=== PATIENT | male | born 2000 | race African-American/Black ===

== ENCOUNTER 2025-01-15 13:36 | Emergency (ER) | payer SELFPAY ==
[2025-01-15 13:39] VITALS: BP 105/61
[2025-01-15 14:02] VITALS: BP 105/61
[2025-01-15 14:09] VITALS: BMI 24.0
--- NOTE | 2025-01-15 15:00 | ED.GENMED ---
History of Present Illness
General
Chief Complaint: Headache
Time Seen by Provider: 01/15/25 14:35
History of Present Illness
History of Present Illness:
Patient is a 24-year-old male with past medical history of Down syndrome here today with family for evaluation of a headache that began this morning. Sister checked his blood pressure and it was noted to be high approximately 160/120. They
provided Tylenol without improvement. Patient has also had nausea. No vomiting. No cough or other URI. No fevers. No history of headaches.
Review of Systems
Review of Systems
All Other Systems: ROS reviewed and negative except as documented in HPI and ROS
Phy Exam
Physical Exam
Physical Exam:
GENERAL: Alert , in no apparent distress
EYE: pupils equal and reactive to light, extraocular movements intact
NECK: Supple
ENT: o/p clr, mmm.
CARDIAC: Regular rate and rhythm .
LUNGS: Clear breath sounds bilaterally, no acute respiratory distress, no wheezes/rales/rhonchi
NEUROLOGICAL: Alert and oriented, no focal neuro deficits, cranial nerves II through XII intact, moving all extremities, normal sensation and motor
SKIN: Warm and dry, skin intact.
MUSCULOSKELETAL: No edema, well perfused.
PSYCH: Normal and appropriate interaction.
Course
Orders/Labs/Results
Orders:
Orders
01/15/25 14:59
CT Head W/o Iv Contrast Urgent
Comment:
Reason For Exam: headache, nausea
Vital Signs
Initial and Last Documented VS:
Initial Vital Signs
Temp Pulse Resp BP Pulse Ox
99.5 F 67 16 105/61 97
01/15/25 13:39 01/15/25 13:39 01/15/25 13:39 01/15/25 13:39 01/15/25 13:39
Last Documented Vital Signs
Temp Pulse Resp BP Pulse Ox
99.5 F 67 16 105/61 97
01/15/25 14:02 01/15/25 14:02 01/15/25 14:02 01/15/25 14:02 01/15/25 15:02
MDM/Problems Addressed
Differential Diagnosis Includes:
Patient is a 24-year-old male with past medical history of Down syndrome here today with family for evaluation of a headache. Patient well-appearing and is neurologically intact. His blood pressure is actually grossly normal. Otherwise no acute
abnormalities noted. Sister would feel more comfortable with CT imaging given the new onset headache which is unusual for the patient. He is also not able to verbally express his symptoms given history of Down syndrome. Shared decision-making was
used. Will order. Will closely monitor and reassess.
01/15/2025 17:20: CT brain reveals bilateral basal ganglia calcification. 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 Do not suspect
infectious pathology at this time given lack of fevers, well appearance of patient, and normal neurological examination. We discussed supportive measures and will provide ibuprofen. Will also recommend neurology follow-up. All questions answered.
Stable for discharge.
*Pulse Oximetry
SaO2: 97
Oxygen Mode of Delivery: Room air
Patient hypoxic: no
*Critical Care Note
Total Time (30-74mins, 75-104mins- exclusive of procedures): Not Applicable
ED Attending Note
-
Portions of this chart may have been created with voice recognition software.� Occasional wrong word or��sound alike� substitutions may have occurred due to the inherent limitations of voice recognition software.
Discharge Plan
Departure
Patient Disposition: Home (Routine Discharge)
Date of Disposition: 01/15/25
Time of Disposition: 17:15
Patient with high blood pressure during this ER visit?: No
Condition: Good
Covid-19: Not Applicable
Discharge Problem:
Headache, Abnormal computed tomography of head
Instructions: Headache, Adult (DC)
Prescriptions:
New
ibuprofen 600 mg tablet
600 mg PO TID PRN (Reason: Pain) 3 Days Qty: 9 0RF
Referrals:
Eugene Moran MD [Active, Neurology] - Follow up in 10 days
NONE,* [Family Provider, Internal Medicine]
Activity Restrictions/Additional Instructions:
You were seen today for evaluation of a headache.
Your CAT scan reveals the following:
FINDINGS: There is bilateral dense basal ganglia calcification, which is considered pathologic in a 24-year-old. This can be a primary finding, sometimes called Fahr disease. They can also be seen as a secondary finding with a relatively large
blister possibilities, including parathyroid disorders, inherited disorders, and infectious disorders.
There is no evidence of acute intracranial hemorrhage. There is no midline shift.
Of note, no calcification within the dentate nuclei or elsewhere within the head.
Ventricles and subarachnoid cisterns appear within normal limits. No abnormal extra-axial collection is identified.
The frontal sinuses are aplastic. The visualized ethmoid sinuses appear clear. The mastoid air cells appear clear.
IMPRESSION:
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 See above discussion.
Follow-up with neurology for further testing and evaluation.
Return for any new, worsening, or concerning symptoms
Interventions
Interventions:
*Risk Screen - Suicide Last Done: 01/15/25 13:39
*Neglect/Abuse Screening Last Done: 01/15/25 13:39
*ED- Fall Risk Assessment Last Done: 01/15/25 14:09
*ED COVID-19 Vaccine History Last Done: 01/15/25 14:09
ED- Neurological Assessment Last Done: 01/15/25 14:10
Discharge Date and Time
Print Language: YAKUT
[2025-01-15 17:37] VITALS: BP 104/57
== END 2025-01-15 17:39 | disposition home or self-care (01) ==
LOC: EMR 13:36
PROVIDERS: EMERGENCY PHYSICIAN Emergency Medicine
DX: R51.9 Headache, unspecified (principal); R93.0 Abnormal findings on diagnostic imaging of skull and head, not elsewhere classified; Q90.9 Down syndrome, unspecified
CPT/HCPCS: 99284; 70450